=== PATIENT | male | born 1965 | race Caucasian/White ===

== ENCOUNTER 2021-02-07 15:39 | Inpatient (IN) ==
[2021-02-07 17:11] LABS: Basophils % 0.5 %; Eosinophils # 0.2 K/mcL (0.0-0.6); Eosinophils % 3.3 %; Hematocrit 31.6 % (37.5-50.1); Hemoglobin 9.8 g/dL (12.9-16.9); Immature Granulocytes % 0.5 % (0-4); Lymphocytes # 0.9 K/mcL (0.6-4.6); Lymphocytes % 12.3 %; Mean Corpuscular Hemoglobin 33.8 pg (28.0-33.3); Mean Platelet Volume 9.9 fL (9.4-12.4); Monocytes # 0.8 K/mcL (0.0-1.3); Monocytes % 10.2 %; Neutrophils # 5.4 K/mcL (1.6-8.9); Platelet Count 129 K/mcL (140-400); Segmented Neutrophils % 73.2 %; White Blood Count 7.3 K/mcL (4.3-11.1)
[2021-02-07 17:38] LABS: Alanine Aminotransferase 16 Units/L (7-52); Albumin 3.5 g/dL (3.5-5.7); Albumin/Globulin Ratio 0.9 (1.1-2.2); Alkaline Phosphatase 75 Units/L (34-104); Aspartate Amino Transferase 19 Units/L (13-39); BUN/Creatinine Ratio 25 (6-26); Bilirubin,Total 0.6 mg/dL (0.3-1.0); Blood Urea Nitrogen 36 mg/dL (6-20); Calcium 8.4 mg/dL (8.6-10.3); Carbon Dioxide 16 mEq/L (23-29); Chloride 113 mEq/L (98-107); Globulin 3.7 g/dL (2.4-3.5); Glucose 85 mg/dL (70-105); Osmolality,Calculated 284 (280-300); Potassium 5.8 mEq/L (3.5-5.1); Sodium 133 mEq/L (136-145); Total Protein 7.2 g/dL (6.4-8.9); Troponin I < 0.03 ng/mL (< 0.04); eGFR For African Americans > 60 (> 60); eGFR For Non-African Americans 50 (> 60)
[2021-02-07] MEDS ORDERED: Insulin Human Regular 5 UNIT in 0.9 % Sodium Chloride 10 ML IV ONE (17:46)
[2021-02-07] MEDS ORDERED: *HR* Dextrose 50 % in Water (Vial) 50 ML VIAL IVP ONE (17:46)
[2021-02-07] MEDS ORDERED: Calcium Gluconate 1gm/50mL 1 GM/50 ML BAG IVPB ONE (17:46)
[2021-02-07] MEDS ORDERED: Furosemide 20 MG/2 ML VIAL IVP ONE ×2 (17:55→18:26)
[2021-02-07] MEDS ORDERED: Nitroglycerin 0.4 MG TAB.SUBL SL ONE (17:59)
[2021-02-07] MEDS: Nitroglycerin 0.4 MG TAB.SUBL SL PRN ×2 (18:04→18:08)
[2021-02-07] MEDS ORDERED: Naloxone 0.4 MG/ML INJ IVP PRN (22:13)
[2021-02-07] MEDS ORDERED: *HR* Promethazine 25 MG/ML VIAL IM PRN (22:13)
[2021-02-07] MEDS: *HR* HYDROcodone/Acet 5/325 mg TABLET PO PRN (22:44)
[2021-02-07] MEDS: Melatonin 3 MG TABLET PO PRN (22:45)
[2021-02-08] MEDS ORDERED: Insulin Human Regular 10 UNIT in 0.9 % Sodium Chloride 10 ML IV ONE (01:11)
[2021-02-08] MEDS ORDERED: D10% in Water 500 ML IVC SCH (01:15)
[2021-02-08] MEDS ORDERED: D5% in Water 1,000 ML IVC PRN (01:19)
[2021-02-08] MEDS ORDERED: Dextrose Gel 15 GM/37.5 ML TUBE PO PRN ×2 (01:19)
[2021-02-08] MEDS ORDERED: *HR* Dextrose 50 % in Water (Vial) 50 ML VIAL IVP PRN (01:19)
[2021-02-08] MEDS: Acetaminophen 325 MG TABLET PO PRN ×2 (02:05→20:25)
[2021-02-08] MEDS ORDERED: Furosemide 40 MG/4 ML VIAL IVP ONE (06:00)
[2021-02-08] MEDS ORDERED: SODIUM ZIRCONIUM CYCLOSILICATE 5 GM POWD.PACK PO ONE (06:19)
[2021-02-08] MEDS ORDERED: Perflutren Lipid Microsphere 1.3 ML in 0.9 % Sodium Chloride 8.7 ML IVP PRN (06:25)
[2021-02-08 06:30] LABS: Hematocrit 28.4 % (37.5-50.1); Hemoglobin 8.9 g/dL (12.9-16.9); Mean Corpuscular HGB Conc 31.3 g/dL (31.6-35.5); Mean Corpuscular Hemoglobin 34.4 pg (28.0-33.3); Mean Corpuscular Volume 109.7 fL (83.0-100.0); Mean Platelet Volume 9.9 fL (9.4-12.4); Platelet Count 127 K/mcL (140-400); Red Blood Count 2.59 M/mcL (4.19-5.50); Red Cell Distribution Width 12.9 % (11.5-14.5); White Blood Count 6.9 K/mcL (4.3-11.1)
[2021-02-08 06:47] LABS: Calcium 8.2 mg/dL (8.6-10.3); Potassium 5.7 mEq/L (3.5-5.1)
[2021-02-08] MEDS: amLODIPine 5 MG TABLET PO SCH (08:10)
[2021-02-08] MEDS: *HR* HYDROcodone/Acet 5/325 mg TABLET PO PRN ×3 (08:13→21:43)
[2021-02-08] MEDS ORDERED: SODIUM ZIRCONIUM CYCLOSILICATE 5 GM POWD.PACK PO SCH (09:00)
[2021-02-08 09:14] LABS: Bilirubin,Urine Negative (Negative); Blood,Urine Small (Negative); Clarity,Urine Clear (Clear); Color,Urine Light-Yellow (Yellow); Glucose,Urine (UA) Normal (Normal); Hyaline Casts,Urine Few per lpf (None Seen); Ketones,Urine Negative (Negative); Leukocyte Esterase,Urine Negative (Negative); Mucus,Urine Few per lpf (None-Few); Nitrite,Urine Negative (Negative); PH,Urine 5.5 pH Units (5.0-8.0); Protein,Urine Trace mg/dL (Neg-Trace); Specific Gravity,Urine 1.012 (1.010-1.025); Squamous Epithelial Cell,Urine Few per hpf (None-Few); Urobilinogen,Urine Normal (Normal)
[2021-02-08 09:18] LABS: Creatinine,Urine 102 mg/dL; Sodium, Urine 83.6 mEq/L
[2021-02-08 09:25] LABS: Amphetamine Screen,Urine Negative ng/mL (Cutoff=1000); Barbiturate Screen,Urine Negative ng/mL (Cutoff=200); Benzodiazepines Screen,Urine Negative ng/mL (Cutoff=200); Cannabinoid Screen,Urine Negative ng/mL (Cutoff = 50); Cocaine Screen,Urine Negative ng/mL (Cutoff= 300); Opiate Screen,Urine Positive ng/mL (Cutoff=300); Phencyclidine Screen,Urine Negative ng/mL (Cutoff=25)
[2021-02-08 09:59] LABS: % Iron Saturation 26 % (20-55); Iron 74 mcg/dL (65-175); Transferrin 206 mg/dL (203-362)
[2021-02-08 10:18] LABS: Ferritin 300 ng/mL (20-250)
[2021-02-08 10:23] LABS: Folate 9.3 ng/mL (3.0-16.0)
[2021-02-08] MEDS: *HR* Heparin 5,000 UNIT/ML VIAL SQ SCH (17:15)
[2021-02-08] MEDS: Doxycycline 100 MG CAPSULE PO SCH (20:25)
[2021-02-08] MEDS: Melatonin 3 MG TABLET PO PRN (21:43)
[2021-02-09 03:46] LABS: Hematocrit 30.1 % (37.5-50.1); Hemoglobin 9.4 g/dL (12.9-16.9)
[2021-02-09] MEDS: *HR* HYDROcodone/Acet 5/325 mg TABLET PO PRN ×4 (03:50→23:47)
[2021-02-09] MEDS: Ondansetron ODT 4 MG TAB.RAPDIS SL PRN (03:50)
[2021-02-09 04:01] LABS: Calcium 8.1 mg/dL (8.6-10.3); Magnesium 2.3 mg/dL (1.6-2.6); Phosphorous 4.3 mg/dL (2.7-4.5); Potassium 5.9 mEq/L (3.5-5.1)
[2021-02-09 04:13] LABS: Estimated Average Glucose 131 mg/dl; Hemoglobin A1C 6.2 %
[2021-02-09] MEDS: *HR* Heparin 5,000 UNIT/ML VIAL SQ SCH ×2 (05:11→17:58)
[2021-02-09] MEDS: amLODIPine 5 MG TABLET PO SCH (08:09)
[2021-02-09] MEDS: Doxycycline 100 MG CAPSULE PO SCH ×2 (08:09→21:15)
[2021-02-09] MEDS ORDERED: *HR* Dextrose 50 % in Water (Vial) 50 ML VIAL IVP ONE (08:59)
[2021-02-09] MEDS ORDERED: Insulin Human Regular 8 UNIT in 0.9 % Sodium Chloride 10 ML IV ONE (08:59)
[2021-02-09] MEDS ORDERED: Albuterol 2.5 MG/3 ML NEBULIZER IH ONE (09:01)
[2021-02-09] MEDS ORDERED: Sodium Bicarbonate 150 MEQ in 0.45 % Sodium Chloride 1,000 ML IVC SCH (11:31)
[2021-02-09] MEDS: Melatonin 3 MG TABLET PO PRN (21:15)
[2021-02-10 02:01] LABS: Calcium 8.3 mg/dL (8.6-10.3); Magnesium 2.3 mg/dL (1.6-2.6); Phosphorous 4.8 mg/dL (2.7-4.5); Potassium 5.3 mEq/L (3.5-5.1)
[2021-02-10] MEDS: *HR* Heparin 5,000 UNIT/ML VIAL SQ SCH ×2 (05:18→17:25)
[2021-02-10] MEDS: Acetaminophen 325 MG TABLET PO PRN ×2 (05:21→13:33)
[2021-02-10] MEDS: amLODIPine 5 MG TABLET PO SCH (08:29)
[2021-02-10] MEDS: Doxycycline 100 MG CAPSULE PO SCH ×2 (08:29→20:57)
[2021-02-10] MEDS: *HR* HYDROcodone/Acet 5/325 mg TABLET PO PRN (08:29)
[2021-02-10] MEDS ORDERED: SODIUM ZIRCONIUM CYCLOSILICATE 5 GM POWD.PACK PO ONE (13:34)
[2021-02-10] MEDS: Acetaminophen/Butalbital/CaffeineTABLET PO PRN (14:37)
[2021-02-10] MEDS: Albumin 25% 25gram/100mL 25 GM/100 ML IV.SOLN IVPB SCH (17:25)
[2021-02-10 20:16] LABS: Protein/Creatinine Ratio,Urine 0.62 mg/mg (0.00-0.20)
[2021-02-10] MEDS: Melatonin 3 MG TABLET PO PRN (20:58)
[2021-02-10] MEDS ORDERED: *HR* LORazepam 2 MG/ML VIAL IVP ONE (23:20)
[2021-02-10] MEDS ORDERED: *HR* LORazepam 2 MG/ML VIAL ONE (23:22)
[2021-02-10] MEDS: Ipratropium/Albuterol Neb 3 ML IH PRN (23:22)
[2021-02-11] MEDS: Albumin 25% 25gram/100mL 25 GM/100 ML IV.SOLN IVPB SCH ×3 (01:15→16:32)
[2021-02-11] MEDS: Acetaminophen/Butalbital/CaffeineTABLET PO PRN ×4 (01:24→23:08)
[2021-02-11 04:29] LABS: ABG Base Excess -3 mEq/L (-2 to 3); ABG HCO3 23 mEq/L (21-27); ABG Oxygen Saturation 91 % (95-98); ABG PCO2 43 mmHg (35-45); ABG PH 7.33 pH Units (7.32-7.45); ABG PO2 66 mmHg (85-104); ABG TCO2 24 mEq/L (20-26)
[2021-02-11] MEDS: *HR* Heparin 5,000 UNIT/ML VIAL SQ SCH ×2 (05:05→16:32)
[2021-02-11 05:53] LABS: BUN/Creatinine Ratio 28 (6-26); Blood Urea Nitrogen 40 mg/dL (6-20); Calcium 8.7 mg/dL (8.6-10.3); Carbon Dioxide 18 mEq/L (23-29); Chloride 111 mEq/L (98-107); Glucose 100 mg/dL (70-105); Magnesium 2.2 mg/dL (1.6-2.6); Osmolality,Calculated 290 (280-300); Phosphorous 3.4 mg/dL (2.7-4.5); Potassium 5.3 mEq/L (3.5-5.1); Sodium 135 mEq/L (136-145); eGFR For African Americans > 60 (> 60); eGFR For Non-African Americans 51 (> 60)
[2021-02-11 05:55] LABS: Uric Acid 9.7 mg/dL (2.3-7.6)
[2021-02-11 06:13] LABS: Hepatitis B Surface Antigen Nonreactive (Nonreactive)
[2021-02-11 06:43] LABS: Hepatitis B Core IgM Nonreactive (Nonreactive)
[2021-02-11 06:44] LABS: Hepatitis C Virus Antibody Nonreactive (Nonreactive)
[2021-02-11] MEDS: Doxycycline 100 MG CAPSULE PO SCH (08:00)
[2021-02-11] MEDS: amLODIPine 5 MG TABLET PO SCH (08:01)
[2021-02-11 08:19] LABS: Hepatitis A Antibody IgM Nonreactive (Nonreactive)
[2021-02-11] MEDS ORDERED: SODIUM ZIRCONIUM CYCLOSILICATE 5 GM POWD.PACK PO ONE (09:00)
[2021-02-11] MEDS: Furosemide 20 MG/2 ML VIAL IVP SCH ×2 (11:22→20:47)
[2021-02-11] MEDS: Ipratropium/Albuterol Neb 3 ML IH PRN ×3 (12:48→22:58)
[2021-02-11] MEDS ORDERED: Ergocalciferol (VIT D2) 50,000 UNIT (1.25MG) CAP PO SCH (14:00)
[2021-02-11 15:46] LABS: Complement C3 25 mg/dL (87-200)
[2021-02-11] MEDS: hydrALAZINE 25 MG TABLET PO SCH ×2 (16:31→23:08)
[2021-02-11] MEDS: Acetaminophen 325 MG TABLET PO PRN (20:46)
[2021-02-11] MEDS: Melatonin 3 MG TABLET PO PRN (23:08)
[2021-02-12] MEDS: *HR* HYDROcodone/Acet 5/325 mg TABLET PO PRN ×2 (03:03→16:24)
[2021-02-12] MEDS: Ipratropium/Albuterol Neb 3 ML IH PRN ×4 (03:44→22:17)
[2021-02-12] MEDS: *HR* Heparin 5,000 UNIT/ML VIAL SQ SCH ×2 (05:05→16:22)
[2021-02-12] MEDS: Acetaminophen/Butalbital/CaffeineTABLET PO PRN ×2 (08:37→21:58)
[2021-02-12] MEDS: hydrALAZINE 25 MG TABLET PO SCH ×2 (08:38→16:21)
[2021-02-12] MEDS: Furosemide 20 MG/2 ML VIAL IVP SCH ×2 (08:38→16:22)
[2021-02-12] MEDS ORDERED: polyethylene glycoL 3350 17 GM POWD.PACK PO PRN (08:53)
[2021-02-12 13:05] LABS: Albumin 3.8 g/dL (3.5-5.7); BUN/Creatinine Ratio 29 (6-26); Blood Urea Nitrogen 41 mg/dL (6-20); Carbon Dioxide 21 mEq/L (23-29); Chloride 109 mEq/L (98-107); Glucose 97 mg/dL (70-105); Osmolality,Calculated 294 (280-300); Potassium 4.6 mEq/L (3.5-5.1); Sodium 137 mEq/L (136-145); eGFR For African Americans > 60 (> 60); eGFR For Non-African Americans 53 (> 60)
[2021-02-12 13:09] LABS: BUN/Creatinine Ratio 30 (6-26); Blood Urea Nitrogen 42 mg/dL (6-20); Carbon Dioxide 22 mEq/L (23-29); Chloride 109 mEq/L (98-107); Glucose 100 mg/dL (70-105); Osmolality,Calculated 295 (280-300); Potassium 4.6 mEq/L (3.5-5.1); Sodium 137 mEq/L (136-145); eGFR For African Americans > 60 (> 60); eGFR For Non-African Americans 52 (> 60)
[2021-02-12] MEDS ORDERED: Melatonin 3 MG TABLET PO ONE (21:50)
[2021-02-13] MEDS: hydrALAZINE 25 MG TABLET PO SCH ×3 (00:44→15:58)
[2021-02-13 01:28] LABS: Basophils # 0.1 K/mcL (0.0-0.2); Eosinophils # 0.3 K/mcL (0.0-0.6); Eosinophils % 4.9 %; Hematocrit 29.8 % (37.5-50.1); Hemoglobin 9.3 g/dL (12.9-16.9); Immature Granulocytes % 0.8 % (0-4); Lymphocytes # 1.1 K/mcL (0.6-4.6); Lymphocytes % 18.7 %; Mean Corpuscular HGB Conc 31.2 g/dL (31.6-35.5); Mean Corpuscular Hemoglobin 33.8 pg (28.0-33.3); Mean Corpuscular Volume 108.4 fL (83.0-100.0); Monocytes # 0.8 K/mcL (0.0-1.3); Monocytes % 13.7 %; Neutrophils # 3.6 K/mcL (1.6-8.9); Platelet Count 121 K/mcL (140-400); Red Blood Count 2.75 M/mcL (4.19-5.50); Red Cell Distribution Width 13.2 % (11.5-14.5); Segmented Neutrophils % 60.9 %; White Blood Count 5.9 K/mcL (4.3-11.1)
[2021-02-13 01:51] LABS: Calcium 8.8 mg/dL (8.6-10.3); Potassium 4.6 mEq/L (3.5-5.1)
[2021-02-13] MEDS: Ipratropium/Albuterol Neb 3 ML IH PRN ×2 (03:46→22:34)
[2021-02-13] MEDS: Ondansetron ODT 4 MG TAB.RAPDIS SL PRN (04:53)
[2021-02-13] MEDS: *HR* Heparin 5,000 UNIT/ML VIAL SQ SCH ×2 (04:53→17:28)
[2021-02-13] MEDS: Acetaminophen/Butalbital/CaffeineTABLET PO PRN ×2 (05:36→15:59)
[2021-02-13] MEDS: polyethylene glycoL 3350 17 GM POWD.PACK PO SCH (08:04)
[2021-02-13] MEDS: Furosemide 20 MG/2 ML VIAL IVP SCH ×2 (08:05→15:59)
[2021-02-13] MEDS: Acetaminophen 325 MG TABLET PO PRN (10:38)
[2021-02-13] MEDS: *HR* HYDROcodone/Acet 5/325 mg TABLET PO PRN ×2 (16:01→22:28)
[2021-02-13] MEDS ORDERED: Melatonin 3 MG TABLET PO ONE (21:21)
[2021-02-14] MEDS: hydrALAZINE 25 MG TABLET PO SCH ×2 (01:01→08:22)
[2021-02-14 02:16] LABS: Basophils # 0.1 K/mcL (0.0-0.2); Eosinophils # 0.3 K/mcL (0.0-0.6); Eosinophils % 4.8 %; Hematocrit 29.6 % (37.5-50.1); Hemoglobin 9.2 g/dL (12.9-16.9); Immature Granulocytes % 0.6 % (0-4); Lymphocytes # 1.3 K/mcL (0.6-4.6); Lymphocytes % 19.5 %; Mean Corpuscular HGB Conc 31.1 g/dL (31.6-35.5); Mean Corpuscular Hemoglobin 34.1 pg (28.0-33.3); Mean Corpuscular Volume 109.6 fL (83.0-100.0); Mean Platelet Volume 10.4 fL (9.4-12.4); Monocytes % 15.6 %; Neutrophils # 3.9 K/mcL (1.6-8.9); Platelet Count 136 K/mcL (140-400); Red Cell Distribution Width 13.4 % (11.5-14.5); Segmented Neutrophils % 58.5 %; White Blood Count 6.7 K/mcL (4.3-11.1)
[2021-02-14 02:24] LABS: Calcium 8.8 mg/dL (8.6-10.3)
[2021-02-14] MEDS: *HR* Heparin 5,000 UNIT/ML VIAL SQ SCH (05:23)
[2021-02-14] MEDS: *HR* HYDROcodone/Acet 5/325 mg TABLET PO PRN (05:55)
[2021-02-14 07:22] VITALS: BP 152/79
[2021-02-14] MEDS: polyethylene glycoL 3350 17 GM POWD.PACK PO SCH (08:22)
[2021-02-14] MEDS: Furosemide 20 MG/2 ML VIAL IVP SCH (08:22)
[2021-02-14] MEDS: Acetaminophen 325 MG TABLET PO PRN (08:23)
[2021-02-14 10:52] LABS: ANA IgG by ELISA NONE DETECTED (None Detected); Serine Protease-3 Antibody 1 AU/mL (0-19)
[2021-02-14] MEDS: Ipratropium/Albuterol Neb 3 ML IH PRN (14:19)
[2021-02-15 13:09] LABS: Alpha 2 Globulin (PEP) 0.49 g/dL (0.48-1.05); Beta Globulin (PEP) 0.75 g/dL (0.48-1.10)
[2021-02-15 13:14] LABS: IFE Reflexed NOT DONE
== END 2021-02-14 16:38 | disposition home or self-care (01) | DRG 199 ==
LOC: EMEROOARM 15:39 → 2NNU 15:39 → SUATTDRO 18:25 → 2NNU 20:11 → SUATTDRO 02-09 16:32 → 2ANU 02-10 12:53
PROVIDERS: ADMIT Internal Medicine; ATTEND Internal Medicine